=== PATIENT | male | born 1975 | race African-American/Black ===

== ENCOUNTER 2024-08-13 15:52 | Inpatient (IN) | payer MEDICAID, OTHER ==
[~2024-08-13] VITALS: Ht 177.8 cm; Wt 87.0 kg
--- NOTE | 2024-08-13 16:02 | ED.PDOC ---
History of Present Illness HPI Comments 49-year-old male presents with a chief complaint of nausea, vomiting, diarrhea, chills, and increased lethargy. Patient states that he has been having flu-like symptoms since this past week. Patient also has a papillar blisters to the corners of his mouth. Patient had a temperature of 102.9F per EMS with a s aturation of 90% on room air. 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 Past Medical History PAST MEDICAL HISTORY: Denies Surgical History: Denies all surgeries Family History Family History: Reviewed,noncontributory to illness Social History Smoker: Non-Smoker Alcohol: Denies ETOH Use Drugs: Denies Drug Use Lives In: Home Constitutional: reports: chills, fatigue; denies: diaphoresis, fever, malaise, sweats, weakness, others EENTM: denies: blurred vision, double vision, ear bleeding, ear discharge, ear drainage, ear pain, ear ringing, eye pain, eye redness, hearing loss, mouth pain, mouth swelling, nasal discharge, nose bleeding, nose congestion, nose pain, photophobia, tearing, throat pain, throat swelling, voice changes, others Respiratory: denies: cough, hemoptysis, orthopnea, SOB at rest, shortness of breath, SOB with excertion, stridor, wheezing, others Cardiovascular: denies: chest pain, dizzy spells, diaphoresis, Dyspnea on exertion, edema, irregular heart beat, left arm pain, lightheadedness, palpitations, PND, syncope, others Gastrointestinal: reports: diarrhea, nausea, vomiting; denies: abdomen distended, abdominal pain, blood streaked bowels, constipated, dysphagia, difficulty swallowing, hematemesis, melena, poor appetite, poor fluid intake, rectal bleeding, rectal pain, others Genitourinary: denies: burning, dysuria, flank pain, frequency, hematuria, incontinence, penile discharge, penile sore, pain, testicle pain, testicle swelling, urgency, others Neurological: denies: dizziness, fainting, headache, left sided numbness, left sided weakness, numbness, paresthesia, pre-existing deficit, right sided numbness, right sided weakness, seizure, speech problems, tingling, tremors, weakness, others Musculoskeletal: denies: back pain, gout, joint pain, joint swelling, muscle pain, muscle stiffness, neck pain, others Integumetry: denies: bruises, change in color, change in hair/nails, dryness, laceration, lesions, lumps, rash, wounds, others Allergic/Immunocompromised: denies: Difficulty Healing, Frequent Infections, Hives, Itching, others Hematologic/Lymphatic: denies: anemia, blood clots, easy bleeding, easy bruising, swollen glands, others Endocrine: denies: excessive hunger, excessive sweating, excessive thirst, excessive urination, flushing, intolerance to cold, intolerance to heat, unexplained weight gain, unexplained weight loss, others Psychiatric: denies: anxiety, bipolar disorder, depression, hopeless, panic disorder, schizophrenia, sleepless, suicidal, others All Other Systems: Reviewed and Negative Physical Exam General Appearance: No Apparent Distress, Normal, Other (PAPILAR BLISTERS ON CORNERS OF MOUTH) HEENT: Normal ENT Inspection, Pharynx Normal, TMs Normal Neck: Full Range of Motion, Non-Tender, Normal, Normal Inspection Respiratory: Chest Non-Tender, Lungs Clear, No Accessory Muscle Use, No Respiratory Distress, Normal Breath Sounds Cardiovascular: No Edema, No JVD, No Murmur, No Gallop, Normal Peripheral Pulses, Regular Rate/Rhythm Breast Exam: Deferred Gastrointestinal: No Organomegaly, Non Tender, No Pulsatile Mass, Normal Bowel Sounds, Soft Genitalia: Deferred Pelvic: Deferred Rectal: Deferred Extremities: No calf tenderness, Normal capillary refill, Normal inspection, Normal range of motion, Non-tender, No pedal edema Musculoskeletal : Apperance: Normal 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 Was a procedure done?: No EKG EKG : Pulse Rate (adult): 133 [place]: Normal Cardiac Rhythm: ST Block: None Hypertrophy: None ST: Normal Differential Dx Considerations may include: sepsis, pneumonia, uti, viral syndrome X-Ray, Labs, Meds, VS Vital Signs Date Time Temp Pulse Resp B/P (MAP) Pulse Ox O2 Delivery O2 Flow Rate FiO2 08/13/24 16:58 105 27 92 Room Air* 0 21 08/13/24 16:36 101.8 101.8 08/13/24 16:25 112 24 111/71 (84) 96 08/13/24 16:17 102.9 140 30 136/80 (98) 98 102.9 08/13/24 16:07 133 08/13/24 16:04 133 Lab Test 08/13/24 16:29 Range/Units White Blood Count 2.0 L 4.4-10.8 10^3/uL Red Blood Count 5.75 4.5-5.90 10^6/uL Hemoglobin 13.2 L 13.5-17.5 g/dL Hematocrit 41.5 41.0-53.0 % Mean Corpuscular Volume 72.2 L 80.0-100.0 fL Mean Corpuscular Hemoglobin 22.9 L 28.0-32.0 pg Mean Corpuscular Hemoglobin Concent 31.8 L 32.0-36.0 g/dL Red Cell Distribution Width 14.3 11.8-14.3 % Platelet Count 71 L 140-450 10^3/uL Mean Platelet Volume 8.7 6.9-10.8 fL Neutrophils (%) (Auto) 37.0-80.0 % Lymphocytes (%) (Auto) 10.0-50.0 % Monocytes (%) (Auto) 0.0-12.0 % Basophils (%) (Auto) 0.0-2.0 % Neutrophils # (Auto) 1.6-8.6 10 ^3/uL Lymphocytes # (Auto) 0.4-5.4 10 ^3/uL Monocytes # (Auto) 0-1.3 10 ^3/uL Differential Total Cells Counted 100.0 100 Neutrophils % (Manual) 40 37.0-80.0 Band Neutrophils % (Manual) 16 Lymphocytes % (Manual) 20 10.0-50.0 Monocytes % (Manual) 19 H 0-12 Eosinophils % (Manual) 2 0-7 Basophils % (Manual) 0 0.0-2.0 Metamyelocytes % (manual) 2 Myelocytes % (Manual) 0 Promyelocytes % (Manual) 0 Blast Cells % (Manual) 0 Nucleated Red Blood Cells 1.0 % Reactive Lymphocytes 1 Platelet Estimate Decreased Hypochromasia (manual) Slight Microcytosis Moderate Prothrombin Time 10.8 9.3-11.8 sec Prothrombin Time INR 1.02 0.9-1.15 Activated Partial Thromboplast Time 24.1 L 24.5-34.5 SEC Sodium Level 141 136-145 mmol/L Potassium Level 3.8 3.5-5.1 mmol/L Chloride Level 106 98-107 mmol/L Carbon Dioxide Level 24 20-31 mmol/L Anion Gap 11 5-15 Blood Urea Nitrogen 19 9-23 mg/dL Creatinine 1.38 H 0.700-1.30 mg/dL Glomerular Filtration Rate Calc 62 >90 mL/min BUN/Creatinine Ratio 13.8 10.0-20.0 Serum Glucose 132 H 74-106 mg/dL Lactic Acid Level 5.4 *H 0.4-2.0 mmol/L Calcium Level 8.7 8.7-10.4 mg/dL Total Bilirubin 1.5 H 0.2-1.0 mg/dL Aspartate Amino Transferase (AST) 91 H <34 U/L Alanine Aminotransferase (ALT) 74 H 7-40 U/L Alkaline Phosphatase 203 H 46-116 U/L Total Protein 5.5 L 5.7-8.2 g/dL Albumin 3.2 3.2-4.8 g/dL Current Medications Medications (Trade) Dose Ordered Sig/Jb Route Start Time Stop Time Status Last Admin Lactated Ringer's 2,200 ml @ 2,200 mls/hr ONCE ONCE IV 08/13/24 16:00 08/13/24 16:59 DC 08/13/24 16:20 Vancomycin HCl 200 ml @ 200 mls/hr ONCE ONCE IV 08/13/24 16:00 08/13/24 16:59 DC 08/13/24 16:17 Time of 1ST Reevaluation: 16:16 Reevaluation 1ST: Unchanged Patient Education/Counseling: Diagnosis, Treatment, Need For Follow Up Family Education/Counseling: No Family Present SEPSIS Sepsis Screen Date sepsis recognized/suspect: Aug 13, 2024 Time Sepsis recognized/suspect: 15:55 Recent Procedure: No On Antibiotic Therapy: No Respiratory Rate >20: Yes Heart Rate >90: Yes Temp<36 C (96.8 F) or >38.3 C: Yes SBP <90 or MAP <65 mmHG: No New Acute Mental Status Change: No Is the patient on CPAP, BIPAP,: No IV fluid challenge completed?: Yes Physician Orders Urinalysis (08/13/24 15:57) Chest Portable (08/13/24 15:57) Accucheck (08/13/24 15:57) Blood Culture (08/13/24 15:57) Cefepime 1gm/ 50ml (Maxipime 1gm/50ml) (08/13/24 22:00) Notify Md If Map <65 Or Bp<90 (08/13/24 15:57) If Map<65 Start Vasopressor (08/13/24 15:57) Electrocardigram (08/13/24 16:53) Vital Signs Date Time Temp Pulse Resp B/P (MAP) Pulse Ox O2 Delivery O2 Flow Rate FiO2 08/13/24 16:58 105 27 92 Room Air* 0 21 08/13/24 16:36 101.8 101.8 08/13/24 16:25 112 24 111/71 (84) 96 08/13/24 16:17 102.9 140 30 136/80 (98) 98 102.9 08/13/24 16:07 133 08/13/24 16:04 133 Laboratory Tests Test 08/13/24 16:29 Lactic Acid Level 5.4 mmol/L (0.4-2.0) *H White Blood Count 2.0 10^3/uL (4.4-10.8) L Medications Medications Dose Ordered Sig/Jb Route Start Time Stop Time Status Last Admin Dose Admin Lactated Ringer's 2,200 ml @ 2,200 mls/hr ONCE ONCE IV 08/13/24 16:00 08/13/24 16:59 DC 08/13/24 16:20 Vancomycin HCl 200 ml @ 200 mls/hr ONCE ONCE IV 08/13/24 16:00 08/13/24 16:59 DC 08/13/24 16:17 Reassessment Post Fluid SEPSIS FOCUS EXAM(REASSESSMENT Sepsis reassessment focused exam completed. Date: 08/13/24 Time 17:24 Date of Reassessment: Aug 13, 2024 Pulse Location: Radial Pulse Strength: Normal Capillary Refill Exam: < 3 seconds Skin Temperature: Warm Skin Moisture: Moist Skin Tugor: WNL Skin Color: [place] Fingernail Color: WNL Departure 1 Departure Time of Disposition: :33 Impression: Primary Impression: Sepsis Qualified Codes: A41.9 - Sepsis, unspecified organism Disposition: 09 ADMITTED INPATIENT Admit to: Tele Condition: Serious Discharged With: Self Critical Care Note Critical Care Time?: Yes (55 min-critical care time only) Critical care comment: Due to concerns for patients condition deteriorating, the care required my highest level of attention and readiness to intervene. I assessed the patient, reviewed the medical records, ordered the appropriate tests and treatments, then reassessed for results and responsiveness. I communicated with medical personnel and consultants and formulated a plan of care. Total critical care time excludes any procedures Stability Stability form required: No Heart Score Heart Score: Heart Score Response (Comments) Value History N/A 0 EKG N/A 0 Age N/A 0 Risk Factors N/A 0 Troponin N/A 0 Total 0 I personally scribed for BRITTNY NELSON MD ([email or web address]) on 08/13/24 at 16:02. Electronically submitted by Stuart Osorio ([email or web address]). I personally scribed for BRITTNY NELSON MD ([email or web address]) on 08/13/24 at 16:07. Electronically submitted by Stuart Osorio ([email or web address]). BRITTNY NELSON MD Aug 13, 2024 16:02
[2024-08-13] MEDS: VANCOMYCIN 1GM/200ML PM 200 ML IV ONE (16:17)
[2024-08-13] MEDS: LACTATED RINGER'S 2,200 ML IV ONE (16:20)
[2024-08-13 16:49] LABS: Hematocrit 41.5 % (41.0-53.0); Hemoglobin 13.2 g/dL (13.5-17.5); Mean Corpuscular Hemoglobin 22.9 pg (28.0-32.0); Mean Corpuscular Volume 72.2 fL (80.0-100.0)
--- NOTE | 2024-08-13 16:53 | DVH ---
CHEST RADIOGRAPH Indication: sirs Technique: Single frontal view of the chest was obtained Comparison: None FINDINGS: Lines and Tubes: None Lungs: No focal consolidation. Pleura: No effusion. No pneumothorax. Cardiomediastinal contours: Unremarkable Bones: No acute osseous abnormality. IMPRESSION: 1. No acute cardiopulmonary disease.
[2024-08-13 16:58] VITALS: PULSE 105; RESP 27; O2SAT 92
[2024-08-13 17:05] LABS: INR 1.02 (0.9-1.15); Partial Thromboplastin Time 24.1 SEC (24.5-34.5); Prothrombin Time 10.8 sec (9.3-11.8)
[2024-08-13 17:11] LABS: Albumin 3.2 g/dL (3.2-4.8); Anion Gap 11 (5-15); BUN/Creatinine Ratio 13.8 (10.0-20.0); Blood Urea Nitrogen 19 mg/dL (9-23); Calcium 8.7 mg/dL (8.7-10.4); Carbon Dioxide 24 mmol/L (20-31); Chloride 106 mmol/L (98-107); Nucleated Red Blood Cells % 1.0 %; Potassium 3.8 mmol/L (3.5-5.1); Sodium 141 mmol/L (136-145); Total Cells Counted 100.0 (100)
[2024-08-13 17:20] LABS: Alanine Aminotransferase 74 U/L (7-40); Alkaline Phosphatase 203 U/L (46-116); Bilirubin, Total 1.5 mg/dL (0.2-1.0); Glucose 132 mg/dL (74-106); Lactic Acid w/Reflex 5.4 mmol/L (0.4-2.0); Total Protein 5.5 g/dL (5.7-8.2)
[2024-08-13] MEDS: CEFEPIME 1GM/ 50ML 50 ML IV ONE (18:00)
--- NOTE | 2024-08-13 18:28 | ECG ---
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
[2024-08-13 19:30] VITALS: O2SAT 91
[2024-08-13 20:17] LABS: Urine Protein, UAD Negative (Negative)
[2024-08-13] MEDS: ACETAMINOPHEN 325 MG TAB PO ONE (20:23)
[2024-08-13] MEDS ORDERED: ONDANSETRON HCL 4 MG/2 ML VIAL IV PRN (21:45)
[2024-08-13] MEDS ORDERED: DOCUSATE SOD 100 MG CAP PO PRN (21:45)
[2024-08-13] MEDS ORDERED: HYDROcodone-ACET 5/325MG TAB PO PRN (21:45)
[2024-08-13] MEDS ORDERED: VANCOMYCIN PER PHARMACY 0 MG IV SCH (21:45)
[2024-08-13] MEDS: CEFEPIME 1GM/ 50ML 50 ML IV SCH (22:09)
[2024-08-13] MEDS: LACTATED RINGER'S 1,000 ML IV SCH (22:10)
--- NOTE | 2024-08-13 22:39 | DVHHP2 ---
History of Present Illness Reason for Visit: Sepsis, unspecified organism History of Present Illness The patient is a 49-year-old male who denies past medical history presented to [facility] ED with complaint of nausea. Patient reports he has been experiencing nausea associated with vomiting, diarrhea, chills, and increased lethargy. Patient also has a papillar blisters to the corners of his mouth, had temperature of 102.9F per EMS with a saturation of 90% on room air. Patient was seen and evaluated in the ED, laboratory data shows WBC 2.0, platelets 95803, hemoglobin 13.1, sodium 141, sodium 3.8, BUN 19, creatinine 1.38, glucose 132, hemoglobin A1c 5.1, calcium 8.7, alkaline phos 203, protein 5.5, albumin 3.2, AST 91, ALT 74, lactic acid 5.2, blood pressure 96/65, heart rate 140 trending down to 112, temperature trending down to 99.2 F, O2 saturation 92% on oxygen. Chest x-ray show no acute cardiopulmonary disease. Patient was started on IV antibiotic regimen vancomycin, please see medication orders section in the computer. On my assessment, patient denies chest pain, no headache, no dizziness, no diaphoresis, currently on oxygen, no nausea, no vomiting, no fever, no chills. Patient was admitted for further evaluation and medical management. Past Medical History Denies past medical history Past Surgical History Denies all surgeries Family History Reviewed, noncontributory to the management of this case. Past Social History The patient lives at home, denies smoking, alcohol or illicit drugs abuse. Review of Systems Constitutional: Yes: Chills, Other (Fatigue); No: Fever, Sweats, Weakness, Malaise Eyes: No: Pain, Vision change, Conjunctivae inflammation, Eyelid inflammation, Other, Redness ENT: No: Ear pain, Ear discharge, Nose pain, Nose discharge, Nose congestion, Mouth pain, Mouth swelling, Throat pain, Throat swelling, Other Respiratory: No: Cough, Dry, Shortness of breath, SOB with excertion, Wheezing, Hemoptysis, Pleuritic Pain, Sputum, Wheezing, Other Cardiovascular: No: Chest Pain, Palpitations, Orthopnea, Paroxysmal Noc. Dyspnea, Edema, Lt Headedness, Other Gastrointestinal: Nausea, Vomiting, Diarrhea; No: Abdominal Pain, Constipation, Melena, Hematochezia, Other Genitourinary: No Dysuria, No Frequency, No Incontinence, No Hematuria, No Retention, No Other Musculoskeletal: No: other, neck pain, shoulder pain, arm pain, back pain, hand pain, leg pain, foot pain Skin: No: Rash, Lesions, Jaundice, Bruising, Other Neurological: No: Weakness, Numbness, Incoordination, Change in speech, Confusion, Seizures, Other Allergies: Coded Allergies: NO KNOWN ALLERGIES (Unverified , 08/13/24) Medications Current Medications Medications Dose Ordered Sig/Jb Route Start Time Stop Time Status Last Admin Dose Admin Cefepime HCl 50 ml @ 12.5 mls/hr Q8HR IV 08/13/24 22:00 08/13/24 22:09 12.5 MLS/HR Vancomycin HCl 0 ml @ 0 mls/hr UD IV 08/13/24 21:45 UNV Lactated Ringer's 1,000 ml @ 100 mls/hr Q10H IV 08/13/24 21:45 08/13/24 22:10 100 MLS/HR Acetaminophen/ Hydrocodone Bitart 1 tab Q4HP PRN PO 08/13/24 21:45 Ondansetron HCl 4 mg Q4HP PRN IV 08/13/24 21:45 Docusate Sodium 100 mg BIDPRN PRN PO 08/13/24 21:45 Acetaminophen 650 mg Q6HP PRN PO 08/13/24 21:45 Exam Vital Signs Vital Signs Date Time Temp Pulse Resp B/P (MAP) Pulse Ox O2 Delivery O2 Flow Rate FiO2 08/13/24 21:30 99.2 99.2 08/13/24 20:00 115 26 98/44 (62) 91 08/13/24 19:30 Room Air* 0 21 General Appearance: Alert, Oriented X3, Cooperative, No acute distress HEENT: Atraumatic, PERRLA, EOMI, Mucous membr. moist/pink Respiratory: Normal air movement Cardiovascular: Regular rate, Normal S1, Normal S2, No murmurs Abdominal: Normal bowel sounds, Soft, No tenderness, No hepatospenomegaly, No masses Extremities: No clubbing, No cyanosis, No edema, Normal pulses, No tenderness/swelling Skin: No rashes, No breakdown, No significant lesion Neuro: Normal speech, Normal tone, Sensation intact, Cranial nerves 3-12 NL, Reflexes 2+ Psych/Mental Status: Mental status NL, Mood NL Labs/Xrays Labs Test 08/13/24 19:17 08/13/24 18:18 08/13/24 16:29 Range/Units Urine Color Yellow Yellow Urine Clarity Clear Clear Urine pH 5.0 5.0-9.0 Urine Specific [place] 1.007 1.001-1.035 Urine Protein Negative Negative Urine Ketones Negative Negative Urine Blood Negative Negative /uL Urine Nitrite Negative Negative Urine Bilirubin Negative Negative Urine Urobilinogen 3 H Negative mg/dL Urine Leukocyte Esterase 1+ Negative /uL Urine RBC <1 0 - 3 /hpf Urine Microscopic WBC 7 H 0-3 /HPF Urine Squamous Epithelial Cells None seen <5 /hpf Urine Bacteria Few H None Seen /hpf Urine Glucose Normal Normal mg/dL Lactic Acid Level 5.2 *H 0.4-2.0 mmol/L White Blood Count 2.0 L 4.4-10.8 10^3/uL Red Blood Count 5.75 4.5-5.90 10^6/uL Hemoglobin 13.2 L 13.5-17.5 g/dL Hematocrit 41.5 41.0-53.0 % Mean Corpuscular Volume 72.2 L 80.0-100.0 fL Mean Corpuscular Hemoglobin 22.9 L 28.0-32.0 pg Mean Corpuscular Hemoglobin Concent 31.8 L 32.0-36.0 g/dL Red Cell Distribution Width 14.3 11.8-14.3 % Platelet Count 71 L 140-450 10^3/uL Mean Platelet Volume 8.7 6.9-10.8 fL Neutrophils (%) (Auto) 37.0-80.0 % Lymphocytes (%) (Auto) 10.0-50.0 % Monocytes (%) (Auto) 0.0-12.0 % Basophils (%) (Auto) 0.0-2.0 % Neutrophils # (Auto) 1.6-8.6 10 ^3/uL Lymphocytes # (Auto) 0.4-5.4 10 ^3/uL Monocytes # (Auto) 0-1.3 10 ^3/uL Differential Total Cells Counted 100.0 100 Neutrophils % (Manual) 40 37.0-80.0 Band Neutrophils % (Manual) 16 Lymphocytes % (Manual) 20 10.0-50.0 Monocytes % (Manual) 19 H 0-12 Eosinophils % (Manual) 2 0-7 Basophils % (Manual) 0 0.0-2.0 Metamyelocytes % (manual) 2 Myelocytes % (Manual) 0 Promyelocytes % (Manual) 0 Blast Cells % (Manual) 0 Nucleated Red Blood Cells 1.0 % Reactive Lymphocytes 1 Platelet Estimate Decreased Hypochromasia (manual) Slight Microcytosis Moderate Prothrombin Time 10.8 9.3-11.8 sec Prothrombin Time INR 1.02 0.9-1.15 Activated Partial Thromboplast Time 24.1 L 24.5-34.5 SEC Sodium Level 141 136-145 mmol/L Potassium Level 3.8 3.5-5.1 mmol/L Chloride Level 106 98-107 mmol/L Carbon Dioxide Level 24 20-31 mmol/L Anion Gap 11 5-15 Blood Urea Nitrogen 19 9-23 mg/dL Creatinine 1.38 H 0.700-1.30 mg/dL Glomerular Filtration Rate Calc 62 >90 mL/min BUN/Creatinine Ratio 13.8 10.0-20.0 Serum Glucose 132 H 74-106 mg/dL Hemoglobin A1c 5.1 <5.7 % A1C Calcium Level 8.7 8.7-10.4 mg/dL Total Bilirubin 1.5 H 0.2-1.0 mg/dL Aspartate Amino Transferase (AST) 91 H <34 U/L Alanine Aminotransferase (ALT) 74 H 7-40 U/L Alkaline Phosphatase 203 H 46-116 U/L Total Protein 5.5 L 5.7-8.2 g/dL Albumin 3.2 3.2-4.8 g/dL PATIENT: JANETTE INTERIANO ACCT: [id number] UNIT: [id number] : 1975 LOC: ER ROOM / BED: / AGE / SEX: 49 / M ADM STATUS: REG ER SERVICE 1122 ORDERING PHYSICIAN: BRITTNY NELSON MD PROCEDURE(s): CXRP - CHEST PORTABLE REASON: sirs ORDER NUMBER(s): [id number], ACCESSION NUMBER(s): [id number] CHEST RADIOGRAPH Indication: sirs Technique: Single frontal view of the chest was obtained Comparison: None FINDINGS: Lines and Tubes: None Lungs: No focal consolidation. Pleura: No effusion. No pneumothorax. Cardiomediastinal contours: Unremarkable Bones: No acute osseous abnormality. IMPRESSION: 1. No acute cardiopulmonary disease. Assessment/Plan Assessment/Plan Sepsis, unspecified organism Acute renal injury Thrombocytopenia Elevated liver enzymes Urinary tract infection Plan 1. Admit to telemetry units 2. Breathing treatment 3. Pain control management 4. IV antibiotic management 5. Management of fluids and electrolytes 6. Consultation for hospitalist 7. Diagnostic test chest x-ray 8. DVT prophylaxis on SCDs 9. Repeat labs CBC, CMP in a.m. 10. Home medication reviewed and reconciled 11. Continue with current medical management 12. Treatment plan discussed with patient and RN. Patient verbalized understanding. Plan discussed with: Patient, Other (RN) My Orders Orders - ARANZA WAYNE DNP Procedure Category Date Status Time Vancomycin Per PHA 08/13/24 Pending Pharmacy 21:45 Urine Bacterial PILAR 08/13/24 In Process Culture 21:39 Lactated Ringer's PHA 08/13/24 In Process 21:45 Allergies TANVI 08/13/24 In Process 21:39 Code Status CODE 08/13/24 Transmitted 21:39 Oxygen Per Hour RT 08/13/24 Transmitted 21:39 Hydrocodone-Acet PHA 08/13/24 In Process 5/325mg Tab ([place] 21:45 Ondansetron Hcl PHA 08/13/24 In Process (Zofran) 21:45 Docusate Sodium PHA 08/13/24 In Process Capsule (Colace 21:45 Complete Blood Count LAB 08/14/24 Verified 04:00 Comprehensive LAB 08/14/24 Verified Metabolic Panel 04:00 Cardiac DIET 08/14/24 Transmitted Diet-2gna,Lofat,Lochol Breakfast Condition: Serious TANVI 08/13/24 In Process 21:39 Acetaminophen Tablet PHA 08/13/24 In Process (Tylenol Tablet) 21:45 Bedrest With Bathroom TANVI 08/13/24 In Process Privileg 21:39 Sequential TANVI 08/13/24 In Process Compression Device Problem List: (1) Sepsis, unspecified organism (2) Acute renal injury (3) Thrombocytopenia (4) Elevated liver enzymes (5) Urinary tract infection Date of Service: Aug 13, 2024 Billing Provider: ARANZA WAYNE DNP Common Visit Codes: [id number]-[id number] INP/OBS CARE (HIGH) ARANZA WAYNE DNP Aug 13, 2024 22:39
[2024-08-13] MEDS ORDERED: NITROGLYCERIN 0.4 MG SL TAB SL PRN (22:45)
[2024-08-13] MEDS ORDERED: MORPHINE SULFATE INJ 2 MG/ml SYRG IV PRN (22:45)
[2024-08-14] VITALS (9 sets, daily range): BP systolic 90–126; BP diastolic 43–80; PULSE 66–86; RESP 12–17; TEMP 98–99.2; O2SAT 93–98
[2024-08-14 05:24] LABS: Hemoglobin 12.5 g/dL (13.5-17.5)
[2024-08-14 05:27] LABS: Hematocrit 38.8 % (41.0-53.0); Mean Corpuscular Hemoglobin 22.9 pg (28.0-32.0); Mean Corpuscular Volume 71.1 fL (80.0-100.0)
[2024-08-14 06:07] LABS: Albumin 3.5 g/dL (3.2-4.8); Anion Gap 9 (5-15); BUN/Creatinine Ratio 11.5 (10.0-20.0); Bilirubin, Total 1.2 mg/dL (0.2-1.0); Blood Urea Nitrogen 15 mg/dL (9-23); Calcium 8.9 mg/dL (8.7-10.4); Carbon Dioxide 26 mmol/L (20-31); Glucose 98 mg/dL (74-106); Potassium 4.2 mmol/L (3.5-5.1); Sodium 142 mmol/L (136-145); Total Protein 6.0 g/dL (5.7-8.2)
[2024-08-14 06:09] LABS: Alanine Aminotransferase 69 U/L (7-40); Alkaline Phosphatase 130 U/L (46-116); Chloride 107 mmol/L (98-107)
[2024-08-14 06:21] LABS: Total Cells Counted 100.0 (100)
[2024-08-14] MEDS: VANCOMYCIN 750MG KIT 100 ML IV ONE (10:44)
--- NOTE | 2024-08-14 13:09 | DVHPN2 ---
Reviewed: Care Plan, H&P, Labs, Medications, Previous Orders, Radiology Changes from previous H/P or p: No Changes Eyes: No Pain, No Vision change, No Conjunctivae inflammation, No Eyelid inflammation, No Other, No Redness ENT: No Ear pain, No Ear discharge, No Nose pain, No Nose discharge, No Nose congestion, No Mouth pain, No Mouth swelling, No Throat pain, No Throat swelling, No Other Cardiovascular: No Chest Pain, No Palpitations, No Orthopnea, No Paroxysmal Noc. Dyspnea, No Edema, No Lt Headedness, No Other Respiratory: No Cough, No Dry, No Shortness of breath, No SOB with excertion, No Wheezing, No Hemoptysis, No Pleuritic Pain, No Sputum, No Other Gastrointestinal: Nausea, Vomiting; No Abdominal Pain; Diarrhea; No Constipation, No Melena, No Hematochezia, No Other Genitourinary: No Dysuria, No Frequency, No Incontinence, No Hematuria, No Retention, No Other Musculoskeletal: No other, No neck pain, No shoulder pain, No arm pain, No back pain, No hand pain, No leg pain, No foot pain Skin: No Rash, No Lesions, No Jaundice, No Bruising, No Other Objective Vitals Vital Signs Date Time Temp Pulse Resp B/P (MAP) Pulse Ox O2 Delivery O2 Flow Rate FiO2 08/14/24 12:00 69 13 101/67 (78) 98 08/14/24 08:00 98.3 98.3 08/14/24 08:00 Nasal Cannula* 2 28 Intake/Output Intake and Output 08/14/24 07:00 Intake Total 2462.5 ml Balance 2462.5 ml Intake IV Total 2462.5 ml Medications Current Medications Medications Dose Ordered Sig/Jb Route Start Time Stop Time Status Last Admin Dose Admin Cefepime HCl 50 ml @ 12.5 mls/hr Q8HR IV 08/13/24 22:00 08/14/24 06:00 12.5 MLS/HR Vancomycin HCl 0 ml @ 0 mls/hr UD IV 08/13/24 21:45 Lactated Ringer's 1,000 ml @ 100 mls/hr Q10H IV 08/13/24 21:45 08/14/24 07:46 100 MLS/HR Acetaminophen/ Hydrocodone Bitart 1 tab Q4HP PRN PO 08/13/24 21:45 Ondansetron HCl 4 mg Q4HP PRN IV 08/13/24 21:45 Docusate Sodium 100 mg BIDPRN PRN PO 08/13/24 21:45 Acetaminophen 650 mg Q6HP PRN PO 08/13/24 21:45 Nitroglycerin 0.4 mg Q5MINP PRN SL 08/13/24 22:45 Morphine Sulfate 2 mg Q30M PRN IV 08/13/24 22:45 Vancomycin HCl 150 ml @ 150 mls/hr Q12H IV 08/14/24 18:00 Laboratory Results Laboratory Tests 08/14/24 04:58 Chemistry Test 08/13/24 16:29 08/14/24 04:58 Albumin 3.2 g/dL (3.2-4.8) 3.5 g/dL (3.2-4.8) Calcium Level 8.7 mg/dL (8.7-10.4) 8.9 mg/dL (8.7-10.4) Total Protein 5.5 g/dL (5.7-8.2) L 6.0 g/dL (5.7-8.2) Coagulation Test 08/13/24 16: Prothrombin Time 10.8 sec (9.3-11.8) Prothrombin Time INR 1.02 (0.9-1.15) Activated Partial Thromboplast Time 24.1 SEC (24.5-34.5) L LFT Test 08/13/24 16:29 08/14/24 04:58 Alanine Aminotransferase (ALT) 74 U/L (7-40) H 69 U/L (7-40) H Alkaline Phosphatase 203 U/L (46-116) H 130 U/L (46-116) H Aspartate Amino Transferase (AST) 91 U/L (<34) H 51 U/L (<34) H Total Bilirubin 1.5 mg/dL (0.2-1.0) H 1.2 mg/dL (0.2-1.0) H HgA1c, TSH Test 08/13/24 16:29 Hemoglobin A1c 5.1 % A1C (<5.7) Urinalysis Test 08/13/24 19:17 Urine Color Yellow (Yellow) Urine Clarity Clear (Clear) Urine pH 5.0 (5.0-9.0) Urine Specific [place] 1.007 (1.001-1.035) Urine Protein Negative (Negative) Urine Ketones Negative (Negative) Urine Blood Negative /uL (Negative) Urine Nitrite Negative (Negative) Urine Bilirubin Negative (Negative) Urine Urobilinogen 3 mg/dL (Negative) H Urine Leukocyte Esterase 1+ /uL (Negative) Urine RBC <1 /hpf (0 - 3) Urine Microscopic WBC 7 /HPF (0-3) H Urine Squamous Epithelial Cells None seen /hpf (<5) Urine Bacteria Few /hpf (None Seen) H Urine Glucose Normal mg/dL (Normal) Microbiology Microbiology Date/Time Source Procedure Growth Status 08/13/24 19:17 Voided Urine Urine Culture - Preliminary Resulted Labs and/or images reviewed: Labs reviewed by me, Image(s) reviewed by me Assessment/Plan Assessment/Plan Sepsis secondary to urinary tract infection Acute urinary tract infection: Urine cultures Rocephin Nausea and Vomiting: Pantoprazole Acute dehydration: IV fluids Thrombocytopenia Elevated liver enzymes: CT abdomen pelvis without contrast Check lipase urine drug screen blood alcohol level Plan discussed with: Patient Date of Service: Aug 14, 2024 Billing Provider: BEENA SCRUGGS MD Common Visit Codes: [id number] INP/OBS CARE(HIGH) BEENA SCRUGGS MD Aug 14, 2024 13:08
[2024-08-14] MEDS: PANTOPRAZOLE 40 MG/10 ML VIAL INJ IV ONE (13:23)
[2024-08-14] MEDS: cefTRIAXone 1GM/50ML D5W 50 ML IV ONE (13:23)
[2024-08-14 13:41] LABS: Lipase 25 U/L (12-53)
--- NOTE | 2024-08-14 14:10 | DVH ---
CT CT AB PEL WO CON-NO ORAL OR IV INDICATION: Nausea and vomiting EXAM DATE: 08/14/2024 01:22 PM COMPARISON: None RADIATION DOSE: CTDIvol: 10.45 mGy, DLP: 614.95 mGy*cm PROCEDURE: Helical CT images were obtained of the abdomen and pelvis without IV contrast Sagittal and coronal reconstructions are provided. ORAL CONTRAST: None. ADDITIONAL IMAGES / REFORMATS: None All C T scans at this medical facility are performed using dose modulation techniques as appropriate to a p erformed exam including the following: Automated exposure control was utilized; adjustment of the MA and/or KV according to patient size; and use of iterative reconstruction technique. FINDINGS: LUNG BASE: Normal. LIVER: Subcentimeter hepatic cystic lesion. GALLBLADDER AND BILIARY TREE: No calcified gallstones. Normal caliber wall. No intra- or extrahepatic biliary ductal dilation. PANCREAS: Normal. SPLEEN: Normal. BOWEL: Normal. Normal appendix. ADRENALS: Normal. KIDNEYS AND URETER: Normal. BLADDER: Normal. REPRODUCTIVE ORGANS: Normal. LYMPH NODES:No lymphadenopathy. PERITONEUM: No ascites or free air. No other fluid collection. VESSELS: Scattered atherosclerotic calcifications are noted. RETROPERITONEUM: Normal. ABDOMINAL WALL: Normal. BONES: Scattered osseous degenerative changes are noted. Severe anterolisthesis of L5-S1. IMPRESSION: No acute intraabdominal abnormality.
[2024-08-14] MEDS ORDERED: VANCOMYCIN 750mg/150ml 150 ML IV SCH (18:00)
[2024-08-15] VITALS (8 sets, daily range): BP systolic 110–129; BP diastolic 77–89; PULSE 61–85; RESP 16–19; TEMP 97.6–99; O2SAT 95–97
[2024-08-15 08:05] LABS: Amphetamine Screen, Urine Neg (NEGATIVE); Barbiturate Scree,Urine Neg (NEGATIVE); Benzodiazephine Screen, Urine Neg (NEGATIVE); Cannabinoid Screen, Urine Neg (NEGATIVE); Cocaine Screen, Urine Neg (NEGATIVE); Opiate Scree,Urine Neg (NEGATIVE); Phencyclidine Screen, Urine Neg (NEGATIVE)
[2024-08-15] MEDS: PANTOPRAZOLE 40 MG/10 ML VIAL INJ IV SCH (10:04)
[2024-08-15] MEDS: cefTRIAXone 1GM/50ML D5W 50 ML IV SCH (10:04)
[2024-08-15] MEDS: ACETAMINOPHEN 325 MG TAB PO PRN (10:05)
--- NOTE | 2024-08-15 10:33 | DVHPN2 ---
Reviewed: Care Plan, H&P, Labs, Medications, Previous Orders, Radiology Changes from previous H/P or p: No Changes Eyes: No Pain, No Vision change, No Conjunctivae inflammation, No Eyelid inflammation, No Other, No Redness ENT: No Ear pain, No Ear discharge, No Nose pain, No Nose discharge, No Nose congestion, No Mouth pain, No Mouth swelling, No Throat pain, No Throat swelling, No Other Cardiovascular: No Chest Pain, No Palpitations, No Orthopnea, No Paroxysmal Noc. Dyspnea, No Edema, No Lt Headedness, No Other Respiratory: No Cough, No Dry, No Shortness of breath, No SOB with excertion, No Wheezing, No Hemoptysis, No Pleuritic Pain, No Sputum, No Other Gastrointestinal: Nausea, Vomiting; No Abdominal Pain; Diarrhea; No Constipation, No Melena, No Hematochezia, No Other Genitourinary: No Dysuria, No Frequency, No Incontinence, No Hematuria, No Retention, No Other Musculoskeletal: No other, No neck pain, No shoulder pain, No arm pain, No back pain, No hand pain, No leg pain, No foot pain Skin: No Rash, No Lesions, No Jaundice, No Bruising, No Other Objective Vitals Vital Signs Date Time Temp Pulse Resp B/P (MAP) Pulse Ox O2 Delivery O2 Flow Rate FiO2 08/15/24 08:45 99.0 69 16 126/89 (101) 95 99.0 08/15/24 07:30 Room Air* 0 21 Intake/Output Intake and Output 08/15/24 07:00 Intake Total 2737.5 ml Output Total 500 ml Balance 2237.5 ml Intake Oral 650 ml IV Total 2087.5 ml Output Urine Total 500 ml Medications Current Medications Medications Dose Ordered Sig/Jb Route Start Time Stop Time Status Last Admin Dose Admin Lactated Ringer's 1,000 ml @ 100 mls/hr Q10H IV 08/13/24 21:45 08/15/24 07:00 100 MLS/HR Acetaminophen/ Hydrocodone Bitart 1 tab Q4HP PRN PO 08/13/24 21:45 Ondansetron HCl 4 mg Q4HP PRN IV 08/13/24 21:45 Docusate Sodium 100 mg BIDPRN PRN PO 08/13/24 21:45 Acetaminophen 650 mg Q6HP PRN PO 08/13/24 21:45 08/15/24 10:05 650 MG Nitroglycerin 0.4 mg Q5MINP PRN SL 08/13/24 22:45 Morphine Sulfate 2 mg Q30M PRN IV 08/13/24 22:45 Pantoprazole Sodium 40 mg DAILY IV 08/15/24 10:00 08/15/24 10:04 40 MG Ceftriaxone Sodium 50 ml @ 100 mls/hr DAILY@09 IV 08/15/24 09:00 08/15/24 10:04 100 MLS/HR Laboratory Results Laboratory Tests 08/14/24 04:58 Urinalysis Test 08/13/24 19:17 Urine Color Yellow (Yellow) Urine Clarity Clear (Clear) Urine pH 5.0 (5.0-9.0) Urine Specific [place] 1.007 (1.001-1.035) Urine Protein Negative (Negative) Urine Ketones Negative (Negative) Urine Blood Negative /uL (Negative) Urine Nitrite Negative (Negative) Urine Bilirubin Negative (Negative) Urine Urobilinogen 3 mg/dL (Negative) H Urine Leukocyte Esterase 1+ /uL (Negative) Urine RBC <1 /hpf (0 - 3) Urine Microscopic WBC 7 /HPF (0-3) H Urine Squamous Epithelial Cells None seen /hpf (<5) Urine Bacteria Few /hpf (None Seen) H Urine Glucose Normal mg/dL (Normal) Microbiology Microbiology Date/Time Source Procedure Growth Status 08/13/24 19:17 Voided Urine Urine Culture - Preliminary Resulted 08/13/24 16:35 Blood Blood Culture - Preliminary NO GROWTH AFTER 24 HOURS OF INCUBATION. Resulted Labs and/or images reviewed: Labs reviewed by me, Image(s) reviewed by me Assessment/Plan Assessment/Plan Sepsis secondary to urinary tract infection Acute urinary tract infection: Blood cultures negative Urine cultures growing Gram-negative rods, continue Rocephin Nausea and Vomiting: Pantoprazole Acute dehydration: IV fluids Thrombocytopenia Transaminitis Elevated liver enzymes: CT abdomen pelvis without contrast negative Lipase normal Urine drug screen negative Blood alcohol negative Plan discussed with: Patient My Orders Orders - BEENA SCRUGGS MD Procedure Category Date Status Time Ct Ab Pel Wo Con-No CT 08/14/24 Resulted Oral Or Iv 13:03 Pantoprazole PHA 08/15/24 In Process (Protonix) 10:00 Ceftriaxone 1gm/50ml PHA 08/15/24 In Process D5w (Rocephin) 09:00 Date of Service: Aug 15, 2024 Billing Provider: BEENA SCRUGGS MD Common Visit Codes: [id number] INP/OBS CARE(HIGH) BEENA SCRUGGS MD Aug 15, 2024 10:33
[2024-08-15] MEDS: LACTATED RINGER'S 1,000 ML IV SCH (20:55)
[2024-08-16 01:00] VITALS: BP 130/78; PULSE 71; RESP 19; TEMP 97.5; O2SAT 95
[2024-08-16 05:00] VITALS: BP 122/83; PULSE 74; RESP 18; TEMP 98.5; O2SAT 93
[2024-08-16 07:26] LABS: Hematocrit 36.9 % (41.0-53.0); Hemoglobin 11.9 g/dL (13.5-17.5); Mean Corpuscular Hemoglobin 23.0 pg (28.0-32.0); Mean Corpuscular Volume 71.3 fL (80.0-100.0); Nucleated Red Blood Cells % 0.1 %
[2024-08-16 07:27] LABS: Alanine Aminotransferase 35 U/L (7-40); Alkaline Phosphatase 78 U/L (46-116); Anion Gap 8 (5-15); BUN/Creatinine Ratio 10.5 (10.0-20.0); Bilirubin, Total 0.6 mg/dL (0.2-1.0); Blood Urea Nitrogen 12 mg/dL (9-23); Calcium 9.0 mg/dL (8.7-10.4); Carbon Dioxide 26 mmol/L (20-31); Glucose 93 mg/dL (74-106); Potassium 4.0 mmol/L (3.5-5.1); Sodium 143 mmol/L (136-145); Total Protein 5.7 g/dL (5.7-8.2)
[2024-08-16 07:35] LABS: Albumin 3.2 g/dL (3.2-4.8); Chloride 109 mmol/L (98-107)
[2024-08-16 08:00] VITALS: PULSE 54
[2024-08-16 09:00] VITALS: BP 131/82; PULSE 58; RESP 16; TEMP 97.3; O2SAT 97
[2024-08-16] MEDS ORDERED: CIPR-173 PO (09:23)
--- NOTE | 2024-08-16 09:24 | DVHPN2 ---
Reviewed: Care Plan, H&P, Labs, Medications, Previous Orders, Radiology Changes from previous H/P or p: No Changes Eyes: No Pain, No Vision change, No Conjunctivae inflammation, No Eyelid inflammation, No Other, No Redness ENT: No Ear pain, No Ear discharge, No Nose pain, No Nose discharge, No Nose congestion, No Mouth pain, No Mouth swelling, No Throat pain, No Throat swelling, No Other Cardiovascular: No Chest Pain, No Palpitations, No Orthopnea, No Paroxysmal Noc. Dyspnea, No Edema, No Lt Headedness, No Other Respiratory: No Cough, No Dry, No Shortness of breath, No SOB with excertion, No Wheezing, No Hemoptysis, No Pleuritic Pain, No Sputum, No Other Gastrointestinal: Nausea, Vomiting; No Abdominal Pain; Diarrhea; No Constipation, No Melena, No Hematochezia, No Other Genitourinary: No Dysuria, No Frequency, No Incontinence, No Hematuria, No Retention, No Other Musculoskeletal: No other, No neck pain, No shoulder pain, No arm pain, No back pain, No hand pain, No leg pain, No foot pain Skin: No Rash, No Lesions, No Jaundice, No Bruising, No Other Objective Vitals Vital Signs Date Time Temp Pulse Resp B/P (MAP) Pulse Ox O2 Delivery O2 Flow Rate FiO2 08/16/24 05:00 98.5 74 18 122/83 (96) 93 98.5 08/15/24 20:00 Room Air* 0 21 Intake/Output Intake and Output 08/16/24 07:00 Intake Total 3550 ml Output Total 900 ml Balance 2650 ml Intake Oral 1600 ml IV Total 1950 ml Output Urine Total 900 ml # Voids 3 # Bowel Movements 1 Medications Current Medications Medications Dose Ordered Sig/Jb Route Start Time Stop Time Status Last Admin Dose Admin Acetaminophen/ Hydrocodone Bitart 1 tab Q4HP PRN PO 08/13/24 21:45 Ondansetron HCl 4 mg Q4HP PRN IV 08/13/24 21:45 Docusate Sodium 100 mg BIDPRN PRN PO 08/13/24 21:45 Acetaminophen 650 mg Q6HP PRN PO 08/13/24 21:45 08/16/24 01:29 650 MG Nitroglycerin 0.4 mg Q5MINP PRN SL 08/13/24 22:45 Morphine Sulfate 2 mg Q30M PRN IV 08/13/24 22:45 Pantoprazole Sodium 40 mg DAILY IV 08/15/24 10:00 08/15/24 10:04 40 MG Ceftriaxone Sodium 50 ml @ 100 mls/hr DAILY@09 IV 08/15/24 09:00 08/15/24 10:04 100 MLS/HR Lactated Ringer's 1,000 ml @ 125 mls/hr Q8H IV 08/15/24 18:15 08/16/24 06:41 125 MLS/HR Laboratory Results Laboratory Tests 08/16/24 06:53 Chemistry Test 08/16/24 06:53 Albumin 3.2 g/dL (3.2-4.8) Calcium Level 9.0 mg/dL (8.7-10.4) Total Protein 5.7 g/dL (5.7-8.2) LFT Test 08/16/24 06:53 Alanine Aminotransferase (ALT) 35 U/L (7-40) Alkaline Phosphatase 78 U/L (46-116) Aspartate Amino Transferase (AST) 19 U/L (13-40) Total Bilirubin 0.6 mg/dL (0.2-1.0) Urinalysis Test 08/13/24 19:17 Urine Color Yellow (Yellow) Urine Clarity Clear (Clear) Urine pH 5.0 (5.0-9.0) Urine Specific [place] 1.007 (1.001-1.035) Urine Protein Negative (Negative) Urine Ketones Negative (Negative) Urine Blood Negative /uL (Negative) Urine Nitrite Negative (Negative) Urine Bilirubin Negative (Negative) Urine Urobilinogen 3 mg/dL (Negative) H Urine Leukocyte Esterase 1+ /uL (Negative) Urine RBC <1 /hpf (0 - 3) Urine Microscopic WBC 7 /HPF (0-3) H Urine Squamous Epithelial Cells None seen /hpf (<5) Urine Bacteria Few /hpf (None Seen) H Urine Glucose Normal mg/dL (Normal) Microbiology Microbiology Date/Time Source Procedure Growth Status 08/13/24 19:17 Voided Urine Urine Culture - Preliminary Resulted 08/13/24 16:35 Blood Blood Culture - Preliminary NO GROWTH AFTER 48 HOURS OF INCUBATION. Resulted Labs and/or images reviewed: Labs reviewed by me, Image(s) reviewed by me Assessment/Plan Assessment/Plan Sepsis secondary to urinary tract infection Acute urinary tract infection: Blood cultures negative Urine cultures growing Gram-negative rods, treated with Rocephin Nausea and Vomiting: Pantoprazole Acute dehydration: IV fluids Thrombocytopenia Transaminitis Elevated liver enzymes: CT abdomen pelvis without contrast negative Lipase normal Urine drug screen negative Blood alcohol negative Patient feels better afebrile stable vital signs and wants to go home. Plan discussed with: Patient My Orders Orders - BEENA SCRUGGS MD Procedure Category Date Status Time * [employer] CONS 08/15/24 Transmitted Consult Lactated Ringer's PHA 08/15/24 In Process 18:15 Date of Service: Aug 16, 2024 Billing Provider: BEENA SCRUGGS MD Common Visit Codes: [id number] INP/OBS CARE(HIGH) BEENA SCRUGGS MD Aug 16, 2024 09:24
--- NOTE | 2024-08-16 09:27 | DVHDS2 ---
Discharge Summary Date of Admission Aug 13, 2024 at 22:38 Date of Discharge: Aug 16, 2024 Admitting Diagnosis Generalized weakness Wounds: None Labs/Diagnostic Data: Laboratory Results Test 08/16/24 06:53 08/15/24 07:00 08/15/24 05:53 08/14/24 07:40 White Blood Count 8.0 10^3/uL (4.4-10.8) Red Blood Count 5.18 10^6/uL (4.5-5.90) Hemoglobin 11.9 g/dL (13.5-17.5) Hematocrit 36.9 % (41.0-53.0) Mean Corpuscular Volume 71.3 fL (80.0-100.0) Mean Corpuscular Hemoglobin 23.0 pg (28.0-32.0) Mean Corpuscular Hemoglobin Concent 32.3 g/dL (32.0-36.0) Red Cell Distribution Width 14.3 % (11.8-14.3) Platelet Count 108 10^3/uL (140-450) Mean Platelet Volume 9.9 fL (6.9-10.8) Neutrophils (%) (Auto) 58.4 % (37.0-80.0) Lymphocytes (%) (Auto) 27.3 % (10.0-50.0) Monocytes (%) (Auto) 11.8 % (0.0-12.0) Eosinophils (%) (Auto) 1.8 % (0.0-7.0) Basophils (%) (Auto) 0.7 % (0.0-2.0) Neutrophils # (Auto) 4.6 10 ^3/uL (1.6-8.6) Lymphocytes # (Auto) 2.2 10 ^3/uL (0.4-5.4) Monocytes # (Auto) 0.9 10 ^3/uL (0-1.3) Eosinophils # (Auto) 0.1 10 ^3/uL (0-0.8) Basophils # (Auto) 0.1 10 ^3/uL (0-0.2) Nucleated Red Blood Cells 0.1 % Sodium Level 143 mmol/L (136-145) Potassium Level 4.0 mmol/L (3.5-5.1) Chloride Level 109 mmol/L (98-107) Carbon Dioxide Level 26 mmol/L (20-31) Anion Gap 8 (5-15) Blood Urea Nitrogen 12 mg/dL (9-23) Creatinine 1.14 mg/dL (0.700-1.30) Glomerular Filtration Rate Calc 78 mL/min (>90) BUN/Creatinine Ratio 10.5 (10.0-20.0) Serum Glucose 93 mg/dL (74-106) Calcium Level 9.0 mg/dL (8.7-10.4) Total Bilirubin 0.6 mg/dL (0.2-1.0) Aspartate Amino Transferase (AST) 19 U/L (13-40) Alanine Aminotransferase (ALT) 35 U/L (7-40) Alkaline Phosphatase 78 U/L (46-116) Total Protein 5.7 g/dL (5.7-8.2) Albumin 3.2 g/dL (3.2-4.8) Urine Opiates Screen Neg (NEGATIVE) Urine Fentanyl Screen Neg (NEGATIVE) Urine Barbiturates Screen Neg (NEGATIVE) Urine Phencyclidine Screen Neg (NEGATIVE) Urine Amphetamines Screen Neg (NEGATIVE) Urine Benzodiazepines Screen Neg (NEGATIVE) Urine Cocaine Screen Neg (NEGATIVE) Urine Cannabinoids Screen Neg (NEGATIVE) Vancomycin Level Trough 5.4 ug/mL (5-10) Lactic Acid Level 1.8 mmol/L (0.4-2.0) Test 08/14/24 04:58 08/13/24 19:17 08/13/24 16:29 Differential Total Cells Counted 100.0 (100) Neutrophils % (Manual) 51 (37.0-80.0) Band Neutrophils % (Manual) 24 Lymphocytes % (Manual) 17 (10.0-50.0) Monocytes % (Manual) 4 (0-12) Eosinophils % (Manual) 0 (0-7) Basophils % (Manual) 0 (0.0-2.0) Metamyelocytes % (manual) 0 Myelocytes % (Manual) 0 Promyelocytes % (Manual) 0 Blast Cells % (Manual) 0 Reactive Lymphocytes 4 Platelet Estimate Decrea Large Platelets Few Hypochromasia (manual) Slight Microcytosis Slight Lipase 25 U/L (12-53) Plasma/Serum Blood Alcohol < 3.0 mg/dL (<10) Urine Color Yellow (Yellow) Urine Clarity Clear (Clear) Urine pH 5.0 (5.0-9.0) Urine Specific [place] 1.007 (1.001-1.035) Urine Protein Negative (Negative) Urine Ketones Negative (Negative) Urine Blood Negative /uL (Negative) Urine Nitrite Negative (Negative) Urine Bilirubin Negative (Negative) Urine Urobilinogen 3 mg/dL (Negative) Urine Leukocyte Esterase 1+ /uL (Negative) Urine RBC <1 /hpf (0 - 3) Urine Microscopic WBC 7 /HPF (0-3) Urine Squamous Epithelial Cells None seen /hpf (<5) Urine Bacteria Few /hpf (None Seen) Urine Glucose Normal mg/dL (Normal) Prothrombin Time 10.8 sec (9.3-11.8) Prothrombin Time INR 1.02 (0.9-1.15) Activated Partial Thromboplast Time 24.1 SEC (24.5-34.5) Hemoglobin A1c 5.1 % A1C (<5.7) Other Laboratory Tests 08/16/24 06:53 Brief Hx & Hospital Course: 49-year-old male with no previous medical history came in for nausea and vomiting and generalized weakness found to have sepsis secondary to urinary tract infection treated with Rocephin blood cultures negative urine cultures growing Gram-negative rods mild transaminitis and thrombocytopenia slightly elevated liver enzymes CT abdomen pelvis without contrast negative lipase normal urine drug screen negative blood alcohol negative. The patient feels fine with stable vital signs no nausea or vomiting and wants to go home. Discharged home on Cipro for UTI Consults/Reason for consult None Operations or Procedures CT abdomen pelvis without contrast Condition at Discharge: Fair Final Diagnosis/Problems List Sepsis secondary to urinary tract infection Acute urinary tract infection: Blood cultures negative Urine cultures growing Gram-negative rods, treated with Rocephin Nausea and Vomiting: Pantoprazole Acute dehydration: IV fluids Thrombocytopenia Transaminitis Elevated liver enzymes: CT abdomen pelvis without contrast negative Lipase normal Urine drug screen negative Blood alcohol negative Discharge Disposition: Home Discharge Instruct/Medications Diet: Regular Activity: No Restrictions, As Tolerated Follow Up/Referral: Follow up with your primary Dr Medications: Cipro Transmitted to [facility] Scheduled Ciprofloxacin Hcl (Cipro), 1 TAB PO BID 35 (Time taken for discharge summary 35 minutes) Discharge Statement: "Patient was advised to return to the ER or call 911 if any headaches, dizziness, shortness of breath, chest pain, abdominal pain, bleeding, fevers, or worsening of medical condition. Patient was counseled about treatment plan, medications, possible side effects, patientverbalized understanding. All questions were answered to the best of my ability. This discharge took greater then 30 minutes in planning, reviewing documentation, counseling the patient, and discussing with other team members." ASSESSMENT ASSESSMENT Hospital Course Uneventful Assessment Sepsis secondary to urinary tract infection Acute urinary tract infection: Blood cultures negative Urine cultures growing Gram-negative rods, treated with Rocephin Nausea and Vomiting: Pantoprazole Acute dehydration: IV fluids Thrombocytopenia Transaminitis Elevated liver enzymes: CT abdomen pelvis without contrast negative Lipase normal Urine drug screen negative Blood alcohol negative Date of Service: Aug 16, 2024 Billing Provider: BEENA SCRUGGS MD Common Visit Codes: [id number] DISCH DAY >30min BEENA SCRUGGS MD Aug 16, 2024 09:27
[2024-08-16 10:01] VITALS: BP 131/82; PULSE 58; RESP 16; TEMP 97.3; O2SAT 97
== END 2024-08-16 12:55 | disposition home or self-care (01) | DRG 720 ==
LOC: EDBD 15:52 → ER 15:52 → OVERFLOW 22:38 → TELE-CENTR 08-14 22:47
PROVIDERS: ADMIT Family Medicine; ATTEND Family Medicine
DX: A41.59 Other Gram-negative sepsis (principal); N17.9 Acute kidney failure, unspecified; E87.20 Acidosis, unspecified; D69.6 Thrombocytopenia, unspecified; E86.0 Dehydration; N39.0 Urinary tract infection, site not specified; R74.01 Elevation of levels of liver transaminase levels; Z79.899 Other long term (current) drug therapy
CPT/HCPCS: 36415; 71045; 74176; 80053; 80202; 80307; 80320; 81001; 83036; 83605; 83690; 85007; 85025; 85027; 85610; 85730; 87040; 87086; 87088; 87186; 93005; 96365; 99291; G0378; J2470